=== PATIENT | male | born 1980 | race Hispanic/Latino ===

== ENCOUNTER → 2017-10-20 | Day surgery (SDC) | payer MEDICARE, OTHER ==
[~2017-10-20] MED LIST: BENZTROPINE ME0.5 MG PO; FENTANYL CITRATE/PF 100MCG/2 ML INJ ONE; HYOSCYAMINE SULFATE 0.5 MG/ML AMP ONE; MIDAZOLAM HCL 2 MG/2 ML VIAL ONE; PROPOFOL IV EMULSION 10 MG/ML 20 ML VIAL ONE; PROPOFOL IV EMULSION 10 MG/ML 50 ML VIAL ONE; RISPERIDONE0.5 MG PO
--- NOTE | 2017-10-20 09:45 | Operative Report ---
DATE OF PROCEDURE: October 20, 2017 REFERRING PHYSICIAN: Dr. Shaniqua Dixon. PROCEDURES PERFORMED 1. Esophagogastroduodenoscopy with biopsy and esophageal dilatation. 2. Colonoscopy with polypectomy. INDICATIONS FOR EGD: Dysphagia to solids, nausea and vomiting, weight loss. INDICATIONS FOR COLONOSCOPY: History of bright red blood per rectum. MEDICATION: Patient was done under MAC. Please see anesthesiologist's note. PROCEDURE: With patient in lateral decubitus position, flexible fiberoptic Olympus gastroscope was introduced into the esophagus under direct visualization without any difficulty. A minute ? squamous papilloma was noted in the cervical esophagus that was removed per the cold biopsy forceps. Mucosa overlying the distal esophagus revealed some patchy areas of erythema. There was a mild stricture noted at the GE junction with the mucosa somewhat raised. Biopsies were obtained and stricture was dilated to size 52[place]. The scope was then advanced with ease into the stomach. Mucosa overlying the antrum and the body revealed some patchy erythema and low-grade edema and biopsies were obtained and sent to stain for H. pylori. The pylorus was somewhat stenotic, but it opened up nicely with repetitive intubations with the scope, which was advanced all the way to the 2nd portion of the duodenum. A minute nodule was noted in the proximal 2nd portion and that was biopsied. Mucosa overlying the duodenal bulb appeared to be within normal limits. The scope was then withdrawn back into the stomach and retroflexed. The mucosa overlying the fundus and the cardia appeared to be within normal limits. There was some minimal retained undigested food in the fundus. The scope was then straightened out. The stomach was decompressed. The scope was subsequently withdrawn. Patient tolerated the procedure well. IMPRESSIONS 1. Rule out squamous papilloma, cervical esophagus. 2. Distal esophagitis, mild. 3. Mild stricture, gastroesophageal junction, dilated to size 52[place] and biopsied. 4. Gastritis, biopsied. Biopsies sent to stain for Helicobacter pylori. 5. Minute nodule, proximal 2nd portion, biopsied. PLAN 1. Follow up histology. 2. Initiate Protonix 40 mg 1 p.o. q.a.m. a.c. Patient was then turned around. After adequate lubrication of the anal canal, flexible fiberoptic Olympus colonoscope was inserted into the rectum with ease and advanced all the way to the cecum. It was then withdrawn slowly. Mucosa overlying the cecum, ascending colon appeared to be within normal limits. One polyp was hot biopsied from the transverse colon. The descending sigmoid and rectum grossly appeared to be within normal limits. The scope was then retroflexed into the distal rectum and small internal hemorrhoids were noted, none of which was actively bleeding. Scope was then straightened out. The rectosigmoid area as well as the distal rectal area were decompressed. The scope was subsequently withdrawn. Patient tolerated the procedure well. IMPRESSIONS 1. Transverse colon polyp, hot biopsied. 2. Internal hemorrhoids, none actively bleeding. PLAN 1. Follow up histology. 2. Initiate high-fiber, low-fat diet. 3. Initiate high-fiber supplement. 4. Patient might benefit from a followup colonoscopy in 5 years. Job#: [id number] CF cc:SHANIQUA DIXON MD
== END | disposition home or self-care (01) ==
LOC: OR 07:44
PROVIDERS: ATTEND Internal Medicine Gastroenterology
DX: R63.4 Abnormal weight loss (principal); D13.0 Benign neoplasm of esophagus; K63.5 Polyp of colon; K29.70 Gastritis, unspecified, without bleeding; K22.2 Esophageal obstruction; K20.9 Esophagitis, unspecified; K31.89 Other diseases of stomach and duodenum; K64.8 Other hemorrhoids; F20.9 Schizophrenia, unspecified; F32.9 Major depressive disorder, single episode, unspecified
CPT/HCPCS: 43239; 43450; 45384; J1980; J2250

== ENCOUNTER → 2018-07-25 | Outpatient (CLI) | payer OTHER ==
[~2018-07-25] MED LIST changes: -FENTANYL CITRATE/PF 100MCG/2 ML INJ ONE; +FUROSEMIDE INJ 10 MG/ML 4 ML VIAL ONE; -HYOSCYAMINE SULFATE 0.5 MG/ML AMP ONE; -MIDAZOLAM HCL 2 MG/2 ML VIAL ONE; -PROPOFOL IV EMULSION 10 MG/ML 20 ML VIAL ONE; -PROPOFOL IV EMULSION 10 MG/ML 50 ML VIAL ONE
== END ==
LOC: NM 13:06
PROVIDERS: ATTEND Urology
DX: N13.30 Unspecified hydronephrosis (principal); N39.0 Urinary tract infection, site not specified; R31.29 Other microscopic hematuria
CPT/HCPCS: 78708; A9562; J1940

== ENCOUNTER → 2018-08-23 | Day surgery (SDC) | payer MEDICARE, OTHER ==
[~2018-08-23] VITALS: Ht 180.3 cm; Wt 80.7 kg
[~2018-08-23] MED LIST changes: +CEFAZOLIN SOD 2 GM/D5W 50ML 50 ML IV ONE; +CRANBERRY CONC500 MG PO; +DOCUSATE SODIU100 MG PO; +FENTANYL CITRATE/PF 100MCG/2 ML INJ ONE; -FUROSEMIDE INJ 10 MG/ML 4 ML VIAL ONE; +LIDOCAINE HCL 1% LOCAL INJ 20 ML VIAL ONE; +MIDAZOLAM HCL 2 MG/2 ML VIAL ONE; +PANTOPRAZOLE SO40 MG PO; +SODIUM CHLORIDE 0.9% 500ML 1,000 ML ONE; +SULFAMETHOXAZO1 EAC1 PO; +VITAMIN D1000 UNI1 PO
--- OUTSIDE RECORDS SUMMARY | 2018-08-23 07:56 | XMS REPORT ---
Author Author [facility] Address Unknown Phone Unavailable Care Team Providers Care Clipper Machine Operator Name Role Phone SHON WEBB Unavailable Unavailable Problems This patient has no known problems. Allergies, Adverse Reactions, Alerts This patient has no known allergies or adverse reactions. Medications This patient has no known medications. Results Test Description Test Time Test Comments Text Results Atomic Results Result Comments RENAL SCAN W/LASIX 2018-07-25 17:07:00 [place] [address] Patient Name: SELENA ONEILL MR #: [id number] : 1980 Age/Sex: 38/M Req #: [id number] Adm Physician: Ordered by: SHON WEBB MD Report #: [id number] Location: [place] Room/Bed: Procedure: [id number] NM/RENAL SCAN W/LEVI Exam Date: 07/25/18 Exam Time: 1350 REPORT STATUS: Signed Renal Scan with Lasix Washout Clinical information: 38 M with hydronephrosis, UTI and hematuria Technique: Following intravenous administration of 10 mCi of Tc-99m MAG3, dynamic images of the kidneys in the posterior projection were obtained through 40 minutes. Lasix 40 mg was administered intravenously at 10 minutes post injection of the tracer. Report: Left kidney: Perfusion of the left kidney is prompt. The kidney has a reniform shape with very mild thinning of the renal cortex. Extraction of tracer from the blood pool is normal. Clearance of tracer from the renal parenchyma is prompt. The pelvicalyceal system is mildly dilated. Increased pooling of tracer is seen within the pelvicalyceal system. Minimal net drainage of tracer from the pelvicalyceal system is seen prior to administration of Lasix. Washout of tracer from the pelvicalyceal system following administration of Lasix appears adequate. The T-1/2 for washout of tracer from the pelvicalyceal system is of 20-22 minutes (normal less than 15 minutes). No significant stasis of tracer is seen within the left ureter. Right kidney: Perfusion to the right kidney is prompt. The right kidney has a very markedly enlarged and elongated with very marked thinning of the renal cortex and marked dilation of the pelvicalyceal system. A large cortical wedge-shaped scar is present in the lower pole. Extraction of tracer from the blood pool by the remaining renal parenchyma is decreased. Clearance of tracer from the renal parenchyma is prolonged. The pelvicalyceal system is not dilated. Increased pooling of tracer is seen within the pelvicalyceal system although the pelvicalyceal system does not appear to fill to near full capacity. No net drainage of tracer from the pelvicalyceal system is seen prior to administration of Lasix. Washout of tracer from the pelvicalyceal system following administration of Lasix is slow with an undefined T-1/2 for washout due to the time-activity curve reading a plateau within 5 minutes post Lasix (see renogram with large renal pelvis included in the SHASHANK. No significant stasis of tracer is seen within the right ureter. Differential renal function: The left kidney contributes 75% of total renal function and the right kidney contributes 25% (normal 43-57%). Impression: 1. The function of the left kidney is generally normal. There may be some loss of renal parenchyma, evidenced by the mild thinning of the renal cortex. Mild hydronephrosis is present. The mildly prolonged Lasix washout suggests that physiologically significant obstruction may be present. Close follow-up warranted for stability of kidney appearance/size and washout pattern. 2. 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 Visually, the differential renal function is lower in the range of 10-15%. Chronic obstructive uropathy is present. The pelvicalyceal is massively dilated. Lasix washout is prolonged but may not be useful for identification of physiologically significant obstruction of the pelvicalyceal system given the very large capacity of the pelvicalyceal system and the very poor renal function. Signed by: Dr. Marisel Mendosa M.D. on 07/27/2018 5:03 PM Dictated By: MARISEL MENDOSA MD 02 Transcribed By: JEANETTE on 07/27/181702 COPY TO: SHON WEBB MD
[2018-08-23 11:00] VITALS: BP 137/93
[2018-08-23 11:15] VITALS: BP 122/88
[2018-08-23 11:30] VITALS: BP 134/84
[2018-08-23 11:45] VITALS: BP 124/84
[2018-08-23 12:00] VITALS: BP 127/86
[2018-08-23 12:15] VITALS: BP 122/80
--- NOTE | 2018-08-23 14:54 | Diagnostic Imaging Report ---
Procedure: Suprapubic bladder catheter placement with ultrasound and fluoroscopic guidance earthmoving plant operator: Nahomi Vegas MD Pre-operative diagnosis: Urethral stricture Post-operative diagnosis: Urethral stricture Conscious Sedation: Versed 2 mg and Fentanyl 100 mcg. The patient's heart rate and pulse oximetry were continuously monitored by the interventional radiology nurse. Blood pressure was monitored at 5 minute intervals. Additional Medications: 20 cc Lidocaine 1% for local anesthesia, cefazolin 2 g intravenous Fluoroscopy time: 0.3 minutes Radiation dose: 3 mSv Contrast used: 20 cc Isovue-300 Estimated blood loss: Less than 10 cc Specimens: None Implants: 12 Fr pigtail catheter Blood products administered: None Condition at completion of procedure: Stable Disposition: To cathode maker recovery area then home. DISCUSSION Informed consent was obtained and documented in the medical record after discussion of risks and benefits. The patient was placed in the supine position on the angiographic table and the lower abdomen was prepped and draped in the standard sterile fashion. Attempt was made to place a Renee catheter but was not possible due to known urethral stricture. Initial ultrasound demonstrated distended bladder, therefore the decision was made to proceed with the procedure. A suitable percutaneous approach to the bladder was identified by sonography and 1% lidocaine was infiltrated into the skin and subcutaneous tissues for local anesthesia. Then under continuous sonographic guidance, an 18-gauge singlewall needle was used to access the urinary bladder by a midline approach. A permanent sonographic image was stored in the medical record. A 0.0 3 5-in. Amplatz Super Stiff wire was then advanced through the needle and coiled within the bladder under fluoroscopic guidance.The needle was removed over the wire and the tract was serially dilated, ultimately allowing a 16 [place] peel-away sheath to be advanced over the wire and into the urinary bladder under fluoroscopic guidance. The dilator of the peel-away sheath was removed and a 12 Fr pigtail catheter was advanced over the wire and through the peel-away sheath, which was then removed. The wire was removed and the pigtail was locked. Injection of dilute contrast material confirmed appropriate positioning. The catheter was then connected to gravity drainage. The catheter was secured to the skin with two Ethilon sutures and a sterile dressing was applied. The patient tolerated the procedure well without immediate complication. FINDINGS: Distended urinary bladder. Inability to place Renee catheter due to known urethral stricture. IMPRESSION: Successful placement of a suprapubic bladder catheter (12 Fr pigtail) under sonographic and fluoroscopic guidance. IR may be consulted for future fluoroscopic exchange/upsize to a larger lumen balloon retention catheter. Signed by: Dr. Nahomi Vegas MD on 08/23/2018 2:51 PM
--- NOTE | 2018-08-25 11:04 | Diagnostic Imaging Report ---
Procedure: Suprapubic bladder catheter placement with ultrasound and fluoroscopic guidance press operator helper: Nahomi Vegas MD Pre-operative diagnosis: Urethral stricture Post-operative diagnosis: Urethral stricture Conscious Sedation: Versed 2 mg and Fentanyl 100 mcg. The patient's heart rate and pulse oximetry were continuously monitored by the interventional radiology nurse. Blood pressure was monitored at 5 minute intervals. Additional Medications: 20 cc Lidocaine 1% for local anesthesia, cefazolin 2 g intravenous Fluoroscopy time: 0.3 minutes Radiation dose: 3 mSv Contrast used: 20 cc Isovue-300 Estimated blood loss: Less than 10 cc Specimens: None Implants: 12 Fr pigtail catheter Blood products administered: None Condition at completion of procedure: Stable Disposition: To laboratory machinist recovery area then home. DISCUSSION Informed consent was obtained and documented in the medical record after discussion of risks and benefits. The patient was placed in the supine position on the angiographic table and the lower abdomen was prepped and draped in the standard sterile fashion. Attempt was made to place a Renee catheter but was not possible due to known urethral stricture. Initial ultrasound demonstrated distended bladder, therefore the decision was made to proceed with the procedure. A suitable percutaneous approach to the bladder was identified by sonography and 1% lidocaine was infiltrated into the skin and subcutaneous tissues for local anesthesia. Then under continuous sonographic guidance, an 18-gauge singlewall needle was used to access the urinary bladder by a midline approach. A permanent sonographic image was stored in the medical record. A 0.0 3 5-in. Amplatz Super Stiff wire was then advanced through the needle and coiled within the bladder under fluoroscopic guidance.The needle was removed over the wire and the tract was serially dilated, ultimately allowing a 16 [place] peel-away sheath to be advanced over the wire and into the urinary bladder under fluoroscopic guidance. The dilator of the peel-away sheath was removed and a 12 Fr pigtail catheter was advanced over the wire and through the peel-away sheath, which was then removed. The wire was removed and the pigtail was locked. Injection of dilute contrast material confirmed appropriate positioning. The catheter was then connected to gravity drainage. The catheter was secured to the skin with two Ethilon sutures and a sterile dressing was applied. The patient tolerated the procedure well without immediate complication. FINDINGS: Distended urinary bladder. Inability to place Renee catheter due to known urethral stricture. IMPRESSION: Successful placement of a suprapubic bladder catheter (12 Fr pigtail) under sonographic and fluoroscopic guidance. IR may be consulted for future fluoroscopic exchange/upsize to a larger lumen balloon retention catheter. Signed by: Dr. Nahomi Vegas MD on 08/23/2018 2:51 PM
== END | disposition home or self-care (01) ==
LOC: CATH LAB 07:54 → EDSTATUS 09:30
PROVIDERS: ATTEND Urology
DX: N35.919 Unspecified urethral stricture, male, unspecified site (principal)
CPT/HCPCS: 51102; 76942; C1892; J0690; J2001; J2250; J7040; 77002

== ENCOUNTER → 2018-09-07 | Day surgery (SDC) | payer OTHER ==
[~2018-09-07] VITALS: Ht 180.3 cm; Wt 80.7 kg
[~2018-09-07] MED LIST changes: -CEFAZOLIN SOD 2 GM/D5W 50ML 50 ML IV ONE
--- NOTE | 2018-09-07 09:15 | NUR ---
Patient ambulate to ACU bay 7 with steady gait. Mother at bedside. Patient prepped in usual fashion for procedure. Patient awake,alert, and orientedx3. REspirations even and unlabored on room air. Patient appears to be in no signs of acute distress at this time.
[2018-09-07 09:16] VITALS: BP 145/97
[2018-09-07 12:15] VITALS: BP 116/81
[2018-09-07 12:45] VITALS: BP 116/61
--- NOTE | 2018-09-07 12:45 | NUR ---
Received pt in wastewater analyst lab analyst recover Rm #9 IR intervention change out supra pubic cath. Identifier x2. Received report from Kahlil Boucher. Supra pubic bag from BSD changed to leg bag per family request,Back to baseline orientation Resp shallow and regular. Sat 100% Ra. Abd soft and nn tender denies necessity to defecate or urinate. po intake w/o nausea.NO co pain, POC filled out and family signed papers and copy with family and pt.Iv infusing /o s/s infiltration. meek/wang
[2018-09-07 13:00] VITALS: BP 105/74
[2018-09-07 13:30] VITALS: BP 105/71
--- NOTE | 2018-09-07 13:30 | NUR ---
1330 dc home per private care. iv removed site w/o sls infiltration 2x2 dressing with Cob[place]. POC discussed with court interpreter. Vs stable Pt dressed and escorted to car with [facility] employee, Has POC and suprapubic site w/o s/s bleeding,scan pink tinge to ureter leg bag. Aware of importance o followup care. ds/rn
--- NOTE | 2018-09-09 14:15 | Diagnostic Imaging Report ---
Procedure: Fluoroscopic suprapubic catheter exchange/upsize shredder/granulator operator: Nahomi Vegas MD Pre-operative diagnosis: Urethral stricture Post-operative diagnosis: Urethral stricture Conscious Sedation: Versed 2 mg and Fentanyl 100 mcg. The patient's heart rate and pulse oximetry were continuously monitored by the interventional radiology nurse. Blood pressure was monitored at 5 minute intervals. Additional Medications: 20 cc Lidocaine 1% for local anesthesia Fluoroscopy time: 6.7 minutes Radiation dose: 799.7 mSv Contrast used: 20 cc Isovue-300 Estimated blood loss: Less than 10 cc Specimens: 12 Fr pigtail catheter Implants: 16 Fr Renee catheter (suprapubic) Blood products administered: None Condition at completion of procedure: Stable Disposition: To mill labor supervisor recovery area then home. TECHNIQUE/FINDINGS: Informed consent was obtained and documented in the medical record after discussion of risks and benefits. The patient was placed in the supine position on the angiographic table and the lower abdomen was prepped and draped in the standard sterile fashion. Contrast injection into the existing Renee catheter confirms satisfactory positioning in the bladder. Sutures were subsequently removed. 1% subcutaneous lidocaine was administered for local anesthesia. An .035'' Amplatz wire was placed into the bladder through the existing catheter with fluoroscopic guidance. The existing catheter was removed. Subsequently, fluoroscopic guided sequential dilation with 15 and 16 Fr dilators was performed. However, some resistance was encountered upon passage of the 18 Brazilian dilator resulting in kinking of the Amplatz wire. The dilator was removed. A Kumpe catheter was advanced into the bladder, and a new Amplatz wire was placed. The Kumpe catheter was removed. Subsequently, an 8 mm x 8 cm angioplasty balloon was advanced over the wire and advanced into the tract and inflated to 10 [place] of pressure. The catheter was removed. Subsequently 18 Fr and 20 Fr dilatation was performed of the tract. Attempt was made to pass a 22 Fr peel away sheath into the tract but resistance was encountered. Subsequently, a 20 Fr peel away sheath was successfully placed into the tract. The inner dilator was removed, leaving the wire in place. A 16 Fr Renee catheter was obtained and a hole at the distal tip was made with a 16 gauge needle. After lubrication of the catheter tip with jelly, a 16 Brazilian Renee catheter was advanced over the wire into the peel-away sheath and bladder. The peel-away sheath was peeled. The wire was removed. Injection of dilute contrast material confirmed appropriate positioning. The balloon was inflated with 10 cc of sterile water. The catheter was then connected to gravity drainage. The patient tolerated the procedure well without immediate complication. IMPRESSION: Fluoroscopic guided exchange/upsize of 12 Fr pigtail catheter for a 16 Fr balloon retention Renee catheter. PLAN: Recommend suprapubic catheter exchange in 2-3 months, which can be performed in the clinic setting once the tract is mature. Signed by: Dr. Nahomi Vegas MD on 09/07/2018 4:24 PM
== END | disposition home or self-care (01) ==
LOC: CATH LAB 08:43 → EDSTATUS 10:30
PROVIDERS: ATTEND Radiology Diagnostic Radiology
DX: N35.919 Unspecified urethral stricture, male, unspecified site (principal)
CPT/HCPCS: 51710; C2627; C1725; C1769; J2001; J2250; J7040

== ENCOUNTER → 2020-03-01 | Outpatient (CLI) | payer MEDICARE, OTHER ==
[~2020-03-01] MED LIST changes: -FENTANYL CITRATE/PF 100MCG/2 ML INJ ONE; -LIDOCAINE HCL 1% LOCAL INJ 20 ML VIAL ONE; -MIDAZOLAM HCL 2 MG/2 ML VIAL ONE; -SODIUM CHLORIDE 0.9% 500ML 1,000 ML ONE
--- NOTE | 2020-03-01 12:29 | Diagnostic Imaging Report ---
EXAM: US RENAL RETROPERITONEAL COMP DATE: 03/01/2020 11:03 AM INDICATION: Hydronephrosis COMPARISON: None FINDINGS: The right kidney measures 11.7 x 5.7 x 5.8 cm with cortical thickness of 1.3 cm. Cortical echogenicity is within normal limits. There is a moderate to severe right sided hydronephrosis. No sonographically evident shadowing stone or solid renal mass is appreciated. The left kidney is normal in size measuring 12.4 x 6.7 x 4.8 cm with cortical thickness of 1.3 cm. Cortical echogenicity is within normal limits. There is no evidence for solid renal mass, hydronephrosis, or shadowing calculi within the left kidney. The urinary bladder demonstrates no significant abnormalities. A left ureteral jet is visualized. A right ureteral jet is not appreciated. Prevoid volume is 366 cc. IMPRESSION: Moderate to severe right-sided hydronephrosis of unknown etiology. Unremarkable sonographic appearance of the left kidney. Signed by: Dr. Felix Estrada MD on 03/01/2020 12:26 PM
== END ==
LOC: US 10:29
PROVIDERS: ATTEND Urology
DX: N13.30 Unspecified hydronephrosis (principal)
CPT/HCPCS: 76770

== ENCOUNTER → 2020-04-05 | Outpatient (CLI) | payer MEDICARE, OTHER ==
[~2020-04-05] MED LIST changes: +FUROSEMIDE INJ 10 MG/ML 4 ML VIAL ONE
== END ==
LOC: NM 07:54
PROVIDERS: ATTEND Urology
DX: N13.30 Unspecified hydronephrosis (principal)
CPT/HCPCS: 78708; A9562; J1940

== ENCOUNTER → 2023-11-11 | Day surgery (SDC) | payer MEDICARE, OTHER ==
[~2023-11-11] MED LIST changes: +CENTRUM SILVER1 EAC9; -FUROSEMIDE INJ 10 MG/ML 4 ML VIAL ONE; +LIDOCAINE HCL 2% LOCAL INJ 5 ML SDV VIAL INJ ONE; +LOSARTAN POTASS25 MG PO; +MIDAZOLAM HCL 2 MG/2 ML VIAL ONE; +PROPOFOL IV EMULSION 10 MG/ML 20 ML VIAL ONE
[2023-11-11] MEDS: LACTATED RINGER'S 1,000 ML ONE (06:44)
[2023-11-11 08:19] VITALS: TEMP 97.9
[2023-11-11 08:50] VITALS: BP 129/86; PULSE 70; RESP 16; O2SAT 98
== END | disposition home or self-care (01) ==
LOC: OR 05:59
PROVIDERS: ATTEND Internal Medicine Gastroenterology
DX: Z12.11 Encounter for screening for malignant neoplasm of colon (principal); Z86.010 Personal history of colon polyps; K64.8 Other hemorrhoids; I10 Essential (primary) hypertension; F20.9 Schizophrenia, unspecified; Z01.810 Encounter for preprocedural cardiovascular examination; Z01.812 Encounter for preprocedural laboratory examination; Z79.899 Other long term (current) drug therapy
CPT/HCPCS: 36415; 82948; 93005; G0121; J2001; J2250; J2704; J7121; 45378

== ENCOUNTER → 2024-08-17 | Outpatient (REF) | payer MEDICARE, OTHER ==
[~2024-08-17] MED LIST changes: -LIDOCAINE HCL 2% LOCAL INJ 5 ML SDV VIAL INJ ONE; -MIDAZOLAM HCL 2 MG/2 ML VIAL ONE; -PROPOFOL IV EMULSION 10 MG/ML 20 ML VIAL ONE
== END ==
LOC: US 11:30
PROVIDERS: ATTEND Urology
DX: N39.0 Urinary tract infection, site not specified (principal)
CPT/HCPCS: 76770; 76857